=== PATIENT | male | born 1955 | race Caucasian/White ===

== ENCOUNTER 2025-04-03 10:24 | Emergency (ER) | payer MEDICARE ==
[~2025-04-03] VITALS: Ht 162.6 cm; Wt 65.8 kg
--- NOTE | 2025-04-03 10:34 | NUR ---
PT SEEN IN TRIAGE BY DR DODGE, PER MD NO NEED TO CALL STROKE CODE.
[2025-04-03 10:53] LABS: IMMATURE GRANULOCYTE ABSOLUTE 0.01 K/uL (0-1); NUCLEATED RED BLOOD CELLS 0.0 % (0.0-0.19); PLATELET COUNT (AUTO) 216 K/uL (130-400); RED BLOOD CELL COUNT(AUTO) 4.49 MIL/uL (4.50-6.20); RED CELL DISTRIBUTION WIDTH 12.6 % (11.0-15.5); WHITE BLOOD COUNT (AUTO) 4.8 K/uL (4.8-10.8)
--- NOTE | 2025-04-03 10:56 | HMCIMG ---
EXAM: CT Head Without IV contrast. CLINICAL HISTORY: left leg weakness TECHNIQUE: Axial computed tomography images of the head/brain without intravenous contrast. COMPARISON: None provided. FINDINGS: BRAIN: No evidence of acute hemorrhage. No mass lesion. No CT evidence for acute territorial infarct. No midline shift or extra-axial collections. VENTRICLES: No hydrocephalus. ORBITS: The orbits are unremarkable. SINUSES AND MASTOIDS: The paranasal sinuses and mastoid air cells are clear. BONES: No fracture. SOFT TISSUES: Unremarkable. IMPRESSION: No acute intracranial abnormality. /[place]
[2025-04-03 11:01] LABS: CREATININE 1.2 mg/dL (0.5-1.3); GLOMERULAR FILTR. RATE CALC 65.0 mL/min (>90); GLUCOSE,RANDOM 217.0 mg/dL (70-105); SODIUM SERUM 136.0 mmol/L (136-145); UREA NITROGEN, BLOOD 26.0 mg/dL (7-18)
[2025-04-03 11:06] LABS: CREATINE KINASE, TOTAL 72.0 U/L (21-232)
--- NOTE | 2025-04-03 11:22 | ERN ---
General Chief Complaint: Weakness Stated Complaint: WEAKNESS Time Seen by MD: 10:28 Source: patient, family History of Present Illness Initial Comments Patient is a 70-year-old gentleman coming in to be evaluated for left lower extremity weakness. Per patient this happened an hour and a half prior to arrival. He states that along with the lower left extremity weakness he pres ented with momentary confusion. Patient does has a history of diabetes mellitus Allergies: Coded Allergies: Penicillins (Unverified Allergy, Unknown, HIVES, 04/03/25) Past Medical History Past Medical History: Diabetes-Type II, High Cholesterol Past Surgical History: Other Surgical History Other: INGUINAL HERNIA REPAIR ROS Dictation CONSTITUTIONAL: No chills, no fever, weakness, no diaphoresis, no malaise. HEAD/FACE: No signs of trauma. EENT: No eye pain, no blurred vision, no tearing, no double vision, no ear pain, no ear discharge, no nose pain, no nasal congestion, no throat pain, no throat swelling, no mouth pain. RESPIRATORY: No cough, no orthopnea, no SOB, no stridor, no wheezing. CARDIOVASCULAR: No chest pain, no edema, no palpitations, no syncope. GASTROINTESTINAL/ABDOMINAL: No abdominal pain, no constipation, no diarrhea, no nausea, no vomiting. GENITOURINARY: No abnormal discharge, no dysuria, no frequent urination, no hematuria. No complaints of pain in the genitals. MUSCULOSKELETAL: No back pain, no gout, no joint pain, no joint swelling, no muscle pain, no muscle stiffness, no neck pain. INTEGUMENTARY: No change in color, no change in hair/nails, no dryness, no lesion, no lumps, no rash. NEUROLOGICAL/PSYCH: No anxiety, not depressed, no emotional problem, no headache, no numbness, no pre-existing deficit, no history of seizures, no tremors, no weakness. HEMATOLOGIC/LYMPHATIC: Not anemic, no history of blood clots, no apparent bleeding, no bruising, glands not swollen. All Systems Negative, Except as Noted. Physical Exam Physical Exam Dictation VITAL SIGNS: Reviewed. GENERAL APPEARANCE: Alert, oriented x3, no acute distress, obese. HEAD AND FACE: Non-traumatic. EYES: PERRL, pink conjunctivas, eyelid no trauma, anterior chamber clear. EARS: Pinnas intact and no signs of trauma or erythema. Ear canals clear and no discharge. TMs no erythema. NOSE: No discharge, no bleeding. OROPHARYNX: Mouth normal, teeth no caries, tongue pink. Pharynx clear, no erythema. Tonsils no exudates, no abscesses noted. Mucous membrane moist. NECK: Supple, non-tender, no thyromegaly, no masses, no JVD, no bruits. BREAST: Deferred. CHEST: No tenderness, no crepitus, no paradoxical movement, no retractions. LUNGS: Clear, well-ventilated, symmetric, no rales, no wheezing, no rhonchi, no stridor, good breath sounds bilaterally. HEART: Regular rate, regular rhythm, no murmur, no gallops. VASCULAR: No peripheral edema. ABDOMEN: Soft, positive bowel sounds, nondistended, no guarding, nontender, no rebound, no masses no hepatomegaly, no splenomegaly, no Ureña's sign, no hernias. RECTAL: Deferred. GENITAL: Deferred. NEUROLOGICAL: Normal speech, gross motor function intact, gross sensory function intact. MUSCULOSKELETAL: Neck nontender, full range of motion, back nontender, full range of motion. EXTREMITIES: Nontender, full range of motion. Lower left extremity weakness SKIN: Color pink, dry, no turgor, no rash, no lacerations, no abrasions, no contusions. LYMPHATICS: Deferred. Results Laboratory and Microbiology Lab and Micro Result Laboratory Tests Test 04/03/25 10:46 04/03/25 12:20 White Blood Count 4.8 K/uL (4.8-10.8) Red Blood Count 4.49 MIL/uL (4.50-6.20) L Hemoglobin 13.7 g/dL (14.0-18.0) L Hematocrit 39.7 % (42-54) L Mean Corpuscular Volume 88.4 fL (79-99) Mean Corpuscular Hemoglobin 30.5 pg (27.0-33.0) Mean Corpuscular Hemoglobin Concent 34.5 g/dL (32.0-36.0) Red Cell Distribution Width 12.6 % (11.0-15.5) Platelet Count 216 K/uL (130-400) Mean Platelet Volume 10.1 fL (7.5-10.5) Immature Granulocyte % (Auto) 0.2 % (0-1) Neutrophils (%) (Auto) 80.8 % (40.0-77.0) H Lymphocytes (%) (Auto) 9.3 % (21.0-51.0) L Monocytes (%) (Auto) 8.5 % (3.0-13.0) Eosinophils (%) (Auto) 0.4 % (0.0-8.0) Basophils (%) (Auto) 0.8 % (0.0-5.0) Neutrophils # (Auto) 3.9 K/uL (1.8-7.7) Lymphocytes # (Auto) 0.5 K/uL (1.0-4.8) L Monocytes # (Auto) 0.4 K/uL (0.1-1.0) Eosinophils # (Auto) 0.02 K/uL (0.00-0.70) Basophils # (Auto) 0.04 K/uL (0.00-0.20) Absolute Immature Granulocyte (auto 0.01 K/uL (0-1) Nucleated Red Blood Cells 0.0 % (0.0-0.19) White Cell Morphology Comment See comments Sodium Level 136 mmol/L (136-145) Potassium Level 4.3 mmol/L (3.5-5.1) Chloride Level 100 mmol/L (101-111) L Carbon Dioxide Level 28 mmol/L (21-32) Blood Urea Nitrogen 26 mg/dL (7-18) H Creatinine 1.2 mg/dL (0.5-1.3) Glomerular Filtration Rate Calc 65 mL/min (>90) Random Glucose 217 mg/dL (70-105) H Total Calcium 8.5 mg/dL (8.5-10.1) Total Creatine Kinase 72 U/L (21-232) Urine Color LIGHT-YELLOW (YELLOW) Urine Appearance CLOUDY (CLEAR) H Urine pH 5.0 (5.0-8.0) Urine Specific [place] 1.015 (1.001-1.031) Urine Protein NEGATIVE mg/dL (NEGATIVE) Urine Glucose (UA) 500 mg/dL (NEGATIVE) H Urine Ketones NEGATIVE mg/dL (NEGATIVE) Urine Occult Blood +- (TRACE) (NEGATIVE) H Urine Nitrate NEGATIVE (NEGATIVE) Urine Bilirubin NEGATIVE mg/dL (NEGATIVE) Urine Urobilinogen 0.2 mg/dL (0.2-1.0) Urine Leukocyte Esterase 500 Khadijah/uL (NEGATIVE) H Urine RBC 2-5 /HPF (0-1) H Urine WBC TNTC /HPF (0-1) H Urine WBC Clumps (Auto) FEW /HPF (0-1) Urine Squamous Epithelial Cells RARE /HPF (0-2) Urine Bacteria FEW /HPF (None Seen) Labs Reviewed?: Yes EKG/XRAY/US/CT/MRI CT Scan Comment [facility] [address] [place] [address] IMAGING REPORT Signed PATIENT: AKILAH SHANE MR#: [id number] : 1955 SEX: M AGE: 70 LOCATION: [facility] ORDER 31 STATUS: [facility] ER REPORT#: [id number] SERVICE 103 REASON: left leg weakness ORDERING PHYSICIAN: JADEN DODGE MD PROCEDURE: HEAD WO - CT HEAD/BRAIN W/O CONTRAST EXAM: CT Head Without IV contrast. CLINICAL HISTORY: left leg weakness TECHNIQUE: Axial computed tomography images of the head/brain without intravenous contrast. COMPARISON: None provided. FINDINGS: BRAIN: No evidence of acute hemorrhage. No mass lesion. No CT evidence for acute territorial infarct. No midline shift or extra-axial collections. VENTRICLES: No hydrocephalus. ORBITS: The orbits are unremarkable. SINUSES AND MASTOIDS: The paranasal sinuses and mastoid air cells are clear. BONES: No fracture. SOFT TISSUES: Unremarkable. IMPRESSION: No acute intracranial abnormality. /[place] DICTATED BY: ALEXSANDER SIBLEY MD DATE: 04/03/251154 ELECTRONICALLY SIGNED BY: ALEXSANDER SIBLEY MD DATE: 04/03/251154 [facility] MDM: Differential diagnosis:TIA, CVA Rationale: Tests considered and ordered secondary to shared decision making include: Previous outside records reviewed: Old ER visits. Risk of complication and/or morbidity or mortality of patient management: None Medications-Per medication reconciliation Need for hospitalization: Patient does not meet criteria for hospitalization. Need for emergency major/minor surgery: No There are no social concerns with this patient. Prescription drug management Prescriptions will include symptomatic care Patient's prior external medical records from other ER visits were reviewed by me as indicated. Prior testing and results from previous visits were reviewed. Prior tests were taken into account with medical decision making and resource utilization, independent historian/historians were used to obtain complete medical history. I independently interpreted the test that were performed, results were reviewed by me and considered findings on radiology if ordered. Medical management and examination interpretation discussions were had by me with other qualified healthcare professionals as indicated for the patient's care. ER MD AWARE AT [facility], [facility] OF 0 ON TRANSFERRED TO ED Course Orders Procedure Category Date Status Time Cbc With Differential LAB 04/03/25 Complete 10:30 Creatine Kinase, Total LAB 04/03/25 Complete 10:30 Urinalysis Profile LAB 04/03/25 Complete 10:30 Basic Metabolic Panel LAB 04/03/25 Complete 10:30 Ct Head/Brain W/O CT 04/03/25 Resulted Contrast 10:30 [place] Prov. Neuro CONPHYSVC 04/03/25 Transmitted Consult 11: Culture Urine BOAZ 04/03/25 In Process 12:45 Levofloxacin 500 PHA 04/03/25 Complete Mg/D5w 100 Ml 13:30 Current Medications Medications (Trade) Dose Ordered Sig/Joan Route PRN Reason Start Time Stop Time Status Last Admin Dose Admin Levofloxacin/ Dextrose 100 ml @ 100 mls/hr Q24H ONCE IV 04/03/25 13:30 04/03/25 14:29 DC 04/03/25 13:53 Vital Signs Date Time Temp Pulse Resp B/P (MAP) Pulse Ox O2 Delivery O2 Flow Rate FiO2 04/03/25 14:25 98.4 74 16 149/68 99 Room Air* 0 04/03/25 12:22 98.4 75 18 146/73 98 Room Air* 0 21 04/03/25 11:10 98.4 75 18 158/84 96 Room Air* 0 04/03/25 10:27 97.5 78 18 161/78 98 Room Air 0 DX & DISP Disposition: Transfer Decision to Admit Time: 15:06 Departure Impression: Primary Impression: TIA (transient ischemic attack) Additional Impression: CVA (cerebral vascular accident) Condition: Stable Referrals: SELF,REFERRAL (PCP) JADEN DODGE MD Apr 03, 2025 11:22
[2025-04-03 12:39] LABS: APPEARANCE,URINE CLOUDY (CLEAR); GLUCOSE, URINE (UA) 500 mg/dL (NEGATIVE); LEUKOCYTE ESTERASE ,URINE 500 Leu/uL (NEGATIVE); NITRATE,URINE NEGATIVE (NEGATIVE); OCCULT BLOOD,URINE +- (TRACE) (NEGATIVE)
[2025-04-03 12:45] LABS: ADD UA MICROSCOPIC YES
[2025-04-03 12:49] LABS: SQUAMOUS EPITHELIAL CELL,UR RARE /HPF (0-2); WBC CLUMP FEW /HPF (0-1)
[2025-04-03 14:25] VITALS: BP 149/68; PULSE 74; RESP 16; TEMP 98.4; O2SAT 99
--- NOTE | 2025-04-03 15:11 | NUR ---
REPORT GIVEN TO ER NURSE AT 1505 PENDING EMS FOR TRANSPORT.
--- NOTE | 2025-04-03 15:31 | NUR ---
EMS ARRIVED FOR TRANSPORT OF PT TO [facility] [place], SPOUSE ALLOWED TO RIDE WITH EMS, DID NOT HAVE A VEHICLE. PT STABLE NO DISTRESS VITALS WNL NO C/O PAIN. PT HAS PERSONAL BELONGINGS.
== END 2025-04-03 15:45 | disposition short-term general hospital (02) ==
LOC: EDH 10:24
DX: G45.9 Transient cerebral ischemic attack, unspecified (principal); I63.9 Cerebral infarction, unspecified; E11.9 Type 2 diabetes mellitus without complications; E78.00 Pure hypercholesterolemia, unspecified; Z88.0 Allergy status to penicillin
CPT/HCPCS: 99285; 96374; 70450; 82550; 80048; 85025; 87086 ×2; 87186; 81001; 36415; J1956